=== PATIENT | female | born 1980 | race Caucasian/White ===

== ENCOUNTER 2016-06-17 18:45 | Emergency (ER) ==
[2016-06-17 18:55] VITALS: BP 142/85; TEMP 99.5; BMI 36.2
[2016-06-17 19:13] LABS: BILIRUBIN,URINE Negative (NEGATIVE); KETONES,URINE Negative (NEGATIVE); LEUKOCYTE ESTERASE ,URINE Negative (NEGATIVE); NITRITE,URINE Negative (NEGATIVE); PH,URINE 5.5 (5-9); PROTEIN,URINE Negative (NEGATIVE); URINE, BLOOD 1+ (NEGATIVE)
[2016-06-17 19:21] LABS: ADD URINE MICROSCOPIC YES
[2016-06-17] MEDS ORDERED: TORADOL IM STA (19:21)
[2016-06-17 19:22] LABS: BACTERIA,URINE 2+ (NOT PRESENT)
--- NOTE | 2016-06-17 19:24 | ED.PDOC ---
General ED Provider: Dr. HEIKE ZARAGOZA Chief Complaint: Back Pain Stated Complaint: Been hurting in the lower back, left lower, for 2 days, hurts to move and turn. Time Seen by Physician: 19:21 Mode of Arrival: Wheelchair Information Source: Patient Primary Care Provider: JOEY FREEMAN Nursing and Triage Documentation Reviewed and Agree: Yes Musculoskeletal Complaint Exam - Back Pain Complaint/Exam Mechanism of Injury: Reports: No known trauma Symptoms Are: Still present Timing: Constant Episodes Lasting: Days Initial Severity: Moderate Current Severity: Moderate Location: Reports: Discrete Character: Reports: Aching, Throbbing Aggravating: Reports: Movements, Lifting, Bending Alleviating: Reports: None Associated Signs and Symptoms: Denies: Swelling, Redness, Bruising, Fever, Weakness, Numbness, Tingling, Abdominal pain, Flank pain, Bladder incontinence, Bowel incontinence, Weight loss, Pain with weight bearing Related History: Reports: Similar episode TAD Risk Factors: Reports: None AAA Risk Factors: Reports: None Cauda Equina Risk Factors: Reports: None Epidural Abcess Risk Factors: Reports: None Related Surgical History: Reports: None Focal Tenderness: Yes Paraspinal Muscle Tenderness: Yes Paraspinal Muscle Spasm: Yes Scoliosis: No Lordosis: No Kyphosis: No SLR Test: Right Negative, Left Negative Hip Motion Testing Pain: Right Negative, Left Negative Focal Weakness: Present: None Focal Sensory Loss: Present: None Gait: Present: Normal Differential Diagnoses: Strain, Other (uti) Review of Systems - Review Of Systems Constitutional: Reports: No symptoms Eyes: Reports: No symptoms Ears, Nose, Mouth, Throat: Reports: No symptoms Respiratory: Reports: No symptoms Cardiac: Reports: No symptoms GI: Reports: No symptoms : Reports: Burning, Dysuria Musculoskeletal: Reports: Back pain Skin: Reports: No symptoms Neurological: Reports: No symptoms Endocrine: Reports: No symptoms Hematologic/Lymphatic: Reports: No symptoms All Other Systems: Reviewed and Negative Past Medical History - Past Medical History Previously Healthy: No Endocrine: Reports: None Cardiovascular: Reports: None Respiratory: Reports: None Hematological: Reports: None Gastrointestinal: Reports: None Genitourinary: Reports: Other (PROLAPSE BLADDER, VULVA MELANOMA, CERVICAL CANCER ) Neuro/Psych: Reports: Anxiety, Depression Musculoskeletal: Reports: None Cancer: Reports: Other (VULVA MELANOMA) Last Menstrual Period: hysterectomy Other Pertinent Past Medical History: PROLAPSE BLADDER - Surgical History General Surgical History: Reports: Hysterectomy ( total hysterectomy 2011, bladder sling surgery 09/2014), Cholecystectomy ( GALLBALDDER 1999), Hernia Repair (INGUINAL HERNIA), Other (LYMPH NODE,FISSURE SURGERY,VULVA MELANOMA) - Family History Family History: Reports: None - Social History Smoking Status: Current every day smoker, Heavy tobacco smoker Smoking Cessation Counseling Time: > 10 min Hx Substance Use: No Alcohol Screening: None Physical Exam - Physical Exam Appearance: Well-appearing, Obese Eyes: BELLA, EOMI, Conjunctiva clear ENT: Ears normal, Nose normal, Oropharynx normal Respiratory: Airway patent, Breath sounds clear, Breath sounds equal, Respirations nonlabored Cardiovascular: RRR, Pulses normal, No rub, No murmur GI/: Soft, Nontender, No masses, Bowel sounds normal, No Organomegaly Musculoskeletal: Normal strength (left lower back paraspinal tenderness), ROM intact, No edema, No calf tenderness Skin: Warm, Dry, Normal color Neurological: Sensation intact, Motor intact, Reflexes intact, Cranial nerves intact, Alert, Oriented Psychiatric: Affect appropriate, Mood appropriate Critical Care Note - Critical Care Note Total Time (mins): 0 Course - Course Orders, Labs, Meds: Lab Review 06/17/16 19:05 Urine Color Yellow Urine Clarity Clear Urine pH 5.5 Ur Specific [place] >=1.030 Urine Protein Negative Urine Glucose (UA) Negative Urine Ketones Negative Urine Blood 1+ Urine Nitrite Negative Urine Bilirubin Negative Urine Urobilinogen 0.2 Ur Leukocyte Esterase Negative Urine Microscopic RBC 5-10 Ur Squamous Epith Cells 5-10 Urine Bacteria 2+ Urine Mucus 1+ Orders Category Date Time Status URINALYSIS C & S IF INDICATED Stat LAB 06/17/16 19:05 Completed URINE CULTURE Routine LAB 06/17/16 19:24 Received Ketorolac Tromethamine [Toradol] MEDS 06/17/16 19:21 Discontinued 60 mg IM ONCE STA Medications Discontinued Medications Generic Name Dose Route Start Last Admin Trade Name Freq PRN Reason Stop Dose Admin Ketorolac Tromethamine 60 mg 06/17/16 19:21 06/17/16 19:26 Toradol IM 06/17/16 19:22 60 mg ONCE STA Administration Vital Signs: Temp Pulse Resp BP Pulse Ox 06/17/16 18:46 99.5 F 82 20 142/85 H 97 Departure - Departure Time of Disposition: 19:45 Disposition: HOME SELF-CARE Discharge Problem: Backache Instructions: Low Back Strain (ED) Condition: Stable Pt referred to PMD for follow-up: Yes Additional Instructions: rEST HOT PACK IF HAS PAIN NEEDS F/U [facility] FOR FURTHER EVALUATION Prescriptions: Prednisone 10 mg PO BIDWM #14 tablet Tramadol HCl 50 mg PO BID #14 tablet Allergies/Adverse Reactions: Allergies acetaminophen [From Percocet] Adverse Reaction (Verified 06/17/16 18:54) codeine Adverse Reaction (Verified 03/30/16 20:15) SWELLING, HEART RACING, VOMITING hydrocodone bitartrate [From Lortab] Adverse Reaction (Verified 03/30/16 20:15) RASH, VOMITING oxycodone [From Percocet] Adverse Reaction (Verified 06/17/16 18:54) Penicillins Adverse Reaction (Verified 03/30/16 20:15) RASH, SWELLING Home Medications: Ambulatory Orders Prednisone 10 mg PO BIDWM #14 tablet 06/17/16 Tramadol HCl 50 mg PO BID #14 tablet 06/17/16 Disposition Discussed With: Patient, Family
== END 2016-06-17 20:08 | disposition home or self-care (01) ==
LOC: ED 18:45
DX: M54.5 Low back pain (principal); R30.0 Dysuria; F17.210 Nicotine dependence, cigarettes, uncomplicated
CPT/HCPCS: 81001; 87086; 96372; 99283

== ENCOUNTER 2016-08-26 16:29 | Outpatient (CLI) ==
[2012-10-22 14:20] VITALS: TEMP 97.6
--- NOTE | 2016-08-26 16:51 | DI ---
EXAM: Abdominal series HISTORY: CVA tenderness. COMPARISON: CT abdomen pelvis 01/11/2015 FINDINGS: Lung bases are clear. There are surgical clips in right upper quadrant. There is stool a nd gas scattered throughout the abdomen pelvis. There are no dilated loops of bowel, pneumatosis or portal venous gas. There are calcifications noted in the pelvis. The osseous structures are unrem arkable. IMPRESSION: 1. Nonspecific nonobstructive bowel gas pattern. 2. Changes of previous cholecystectomy with multiple calcified phleboliths in the pelvis
== END 2016-08-26 16:30 | disposition home or self-care (01) ==
LOC: RAD 16:29
PROVIDERS: ATTEND Physician Assistant
DX: M54.9 Dorsalgia, unspecified (principal); R10.31 Right lower quadrant pain

== ENCOUNTER 2016-08-29 20:22 | Emergency (ER) ==
[2016-08-29 20:35] VITALS: BP 127/94; TEMP 100.8; BMI 38.4
--- NOTE | 2016-08-29 20:54 | ED.PDOC ---
General ED Provider: Dr. HEIKE ZARAGOZA Chief Complaint: Back Pain Stated Complaint: Been hurting in rt flank for copuple days, vomited once todat after that she was dizzi and blurry in rt eye Time Seen by Physician: 20:52 Mode of Arrival: Walk-In Information Source: Patient Primary Care Provider: JOEY FREEMAN Nursing and Triage Documentation Reviewed and Agree: Yes GI Complaint Exam - Abdominal Pain Complaint/Exam Onset: Gradual Symptoms Are: Still present Timing: Constant Initial Severity: Moderate Current Severity: Mild Location of Pain: Discrete, RUQ Character: Reports: Sharp, Dull Aggravating: Reports: Movement Alleviating: Reports: None Associated Signs and Symptoms: Reports: Fever, Vomiting Related History: Reports: Similar episode AAA Risk Factors: Reports: None Cardiac Risk Factors: Reports: None Ectopic Risk Factors: Reports: None Ovarian Torsion Risk Factors: Reports: None Surgical Obstruction Risk Factors: Reports: None Related Surgical History: Reports: None Abdominal Findings: Absent: Pulsatile mass, Abdominal distention, Unequal femoral pulses, Rebound tenderness Differential Diagnoses: Diverticulitis, Hepatitis, Pneumonia, Renal Colic Review of Systems - Review Of Systems Constitutional: Reports: Fever, Malaise Eyes: Reports: No symptoms Ears, Nose, Mouth, Throat: Reports: No symptoms Respiratory: Reports: No symptoms Cardiac: Reports: No symptoms GI: Reports: Abdominal pain, Vomiting : Reports: No symptoms Musculoskeletal: Reports: No symptoms Skin: Reports: No symptoms Neurological: Reports: No symptoms Endocrine: Reports: No symptoms Hematologic/Lymphatic: Reports: No symptoms All Other Systems: Reviewed and Negative Past Medical History - Past Medical History Previously Healthy: No Endocrine: Reports: None Cardiovascular: Reports: None Respiratory: Reports: None Hematological: Reports: None Gastrointestinal: Reports: None Genitourinary: Reports: Other (PROLAPSE BLADDER, VULVA MELANOMA, CERVICAL CANCER ) Neuro/Psych: Reports: Anxiety, Depression Musculoskeletal: Reports: None Cancer: Reports: Other (VULVA MELANOMA) Last Menstrual Period: 2011 Other Pertinent Past Medical History: PROLAPSE BLADDER - Surgical History General Surgical History: Reports: Hysterectomy ( total hysterectomy 2011, bladder sling surgery 09/2014), Cholecystectomy ( GALLBALDDER 1999), Hernia Repair (INGUINAL HERNIA), Other (LYMPH NODE,FISSURE SURGERY,VULVA MELANOMA) - Family History Family History: Reports: None - Social History Smoking Status: Current every day smoker, Heavy tobacco smoker Smoking Cessation Counseling Time: > 10 min Hx Substance Use: No Alcohol Screening: None - Immunizations Tetanus Shot up to Date: Yes Physical Exam - Physical Exam Appearance: Well-appearing, Obese Pain Distress: Mild Eyes: BELLA, EOMI ENT: Ears normal, Nose normal, Oropharynx normal Respiratory: Airway patent, Breath sounds clear, Breath sounds equal, Respirations nonlabored Cardiovascular: RRR, Pulses normal, No rub, No murmur GI/: Soft, Tender Musculoskeletal: Normal strength, ROM intact, No edema, No calf tenderness Skin: Warm, Dry, Normal color Neurological: Sensation intact, Motor intact, Reflexes intact, Cranial nerves intact, Alert, Oriented Psychiatric: Affect appropriate, Mood appropriate Interpretation - Radiology Interpretation Radiology Interpretation By: Radiologist Radiology Results: Negative Exam Interpreted: CT Scan Critical Care Note - Critical Care Note Total Time (mins): 0 Course - Course Hematology/Chemistry: 08/29/16 21:05 08/29/16 21:05 Orders, Labs, Meds: Lab Review 08/29/16 08/29/16 08/29/16 21:01 21:05 21:25 WBC 8.79 RBC 4.53 Hgb 13.4 Hct 39.5 MCV 87.2 MCH 29.6 MCHC 33.9 RDW Coeff of [place] 13.3 Plt Count 261 Immature Gran % (Auto) 0.6 Neut % (Auto) 58.7 Lymph % (Auto) 32.4 [place] % (Auto) 5.3 Eos % (Auto) 2.2 Baso % (Auto) 0.8 Immature Gran # (Auto) 0.1 Neut # 5.2 Lymph # 2.9 [place] # 0.5 Eos # 0.2 Baso # 0.1 Sodium 138 Potassium 3.4 L Chloride 102 Carbon Dioxide 26 Anion Gap 13.4 BUN 11 Creatinine 1.04 Estimated GFR (MDRD) 60.00 BUN/Creatinine Ratio 10.57 Glucose 95 Calcium 9.5 Total Bilirubin 0.36 AST 14 L ALT 22 Alkaline Phosphatase 80 Total Protein 7.3 Albumin 3.9 Globulin 3.4 Albumin/Globulin Ratio 1.15 Amylase 67 Lipase 43 Urine Color Yellow Urine Clarity Clear Urine pH 5.5 Ur Specific [place] 1.025 Urine Protein Negative Urine Glucose (UA) Negative Urine Ketones Negative Urine Blood Trace-lysed Urine Nitrite Negative Urine Bilirubin Negative Urine Urobilinogen 1.0 Ur Leukocyte Esterase Negative Urine Microscopic RBC 0-2 Urine Microscopic WBC 0-2 Ur Squamous Epith Cells 0-2 Urine Bacteria Trace Urine Mucus 1+ Influenza A (Rapid) Negative Influenza B (Rapid) Negative Orders Category Date Time Status AMYLASE Stat LAB 08/29/16 21:05 Completed BLOOD CULTURE Stat LAB 08/29/16 21:05 Received CBC W/ AUTO DIFF Stat LAB 08/29/16 21:05 Completed COMPREHENSIVE METABOLIC PANEL Stat LAB 08/29/16 21:05 Completed LIPASE Stat LAB 08/29/16 21:05 Completed RAPID FLU A/B Stat LAB 08/29/16 21:01 Completed URINALYSIS C & S IF INDICATED Stat LAB 08/29/16 21:[address] ABDOMEN/PELVIS WO CONTRAST Stat RADS 08/29/16 20:[address] HEAD W/O CONTRAST Stat RADS 08/29/16 20:50 Completed Vital Signs: Temp Pulse Resp BP Pulse Ox 08/29/16 20:24 100.8 F H 89 20 127/94 H 97 Departure - Departure Time of Disposition: 22:25 Disposition: HOME SELF-CARE Discharge Problem: Viral infection Abdominal pain Qualifiers: Abdominal location: generalized Qualifier Code: (R10.84) Generalized abdominal pain Instructions: Acute Abdominal Pain (ED) Condition: Stable Pt referred to PMD for follow-up: Yes Additional Instructions: Increase hydration Tylenol prn Needs f/u with PMD Allergies/Adverse Reactions: Allergies acetaminophen [From Percocet] Adverse Reaction (Verified 06/17/16 18:54) codeine Adverse Reaction (Verified 03/30/16 20:15) SWELLING, HEART RACING, VOMITING hydrocodone bitartrate [From Lortab] Adverse Reaction (Verified 03/30/16 20:15) RASH, VOMITING oxycodone [From Percocet] Adverse Reaction (Verified 06/17/16 18:54) Penicillins Adverse Reaction (Verified 03/30/16 20:15) RASH, SWELLING tramadol Adverse Reaction (Verified 08/29/16 20:36) Difficulty Swallowing Home Medications: Ambulatory Orders 1 [No Reported Medications] 08/29/16 Disposition Discussed With: Patient, Family
[2016-08-29 21:08] LABS: BASOPHILS # (AUTO) 0.1 K/uL (0-0.2); BASOPHILS % (AUTO) 0.8 % (0.0-3.0); EOSINOPHILS # (AUTO) 0.2 K/ul (0.0-0.7); EOSINOPHILS % (AUTO) 2.2 % (0.0-7.0); HEMATOCRIT 39.5 % (37.0-47.0); HEMOGLOBIN 13.4 g/dl (12.0-16.0); IMMATURE GRANULOCYTE % (AUTO) 0.6 % (0.0-5.0); LYMPHOCYTES # (AUTO) 2.9 K/uL (0.60-3.4); LYMPHOCYTES % (AUTO) 32.4 (10.0-50.0); MEAN CORPUSCULAR HEMOGLOBIN 29.6 pg (27.0-31.0); MEAN CORPUSCULAR HGB CONC 33.9 (31.8-35.4); MEAN CORPUSCULAR VOLUME 87.2 fl (81.0-99.0); MONOCYTES # (AUTO) 0.5 K/uL (0.4-2.0); MONOCYTES % (AUTO) 5.3 (0-10); NEUTROPHILS # (AUTO) 5.2 K/ul (2.0-6.9); NEUTROPHILS % (AUTO) 58.7; PLATELET COUNT 261 10^3/uL (140-440); RED BLOOD COUNT 4.53 10^6/ul (4.20-5.40); WHITE BLOOD COUNT 8.79 K/ul (4.6-10.2)
[2016-08-29 21:20] LABS: FLU INTERNAL QC INTERNAL QC VALID; RAPID FLU A NEGATIVE (NEGATIVE); RAPID FLU B NEGATIVE (NEGATIVE)
[2016-08-29 21:27] LABS: ALBUMIN 3.9 g/dL (3.4-5.0); ALBUMIN/GLOBULIN RATIO 1.15; ANION GAP 13.4; BILIRUBIN,TOTAL 0.36 mg/dL (0.00-1.20); BUN/CREATININE RATIO 10.57; CALCIUM 9.5 mg/dL (8.2-10.2); CREATININE 1.04 mg/dL (0.60-1.30); POTASSIUM 3.4 mmol/L (3.5-5.10); TOTAL PROTEIN 7.3 g/dL (6.4-8.2)
[2016-08-29 21:37] LABS: BILIRUBIN,URINE Negative (NEGATIVE); KETONES,URINE Negative (NEGATIVE); LEUKOCYTE ESTERASE ,URINE Negative (NEGATIVE); NITRITE,URINE Negative (NEGATIVE); PH,URINE 5.5 (5-9); PROTEIN,URINE Negative (NEGATIVE); URINE, BLOOD Trace-lysed (NEGATIVE)
[2016-08-29 21:41] LABS: ADD URINE MICROSCOPIC YES
[2016-08-29 21:42] LABS: BACTERIA,URINE TRACE (NOT PRESENT)
--- NOTE | 2016-08-29 21:49 | CT ---
Exam: CT of the abdomen pelvis without contrast History: Right flank pain Technique: [address] of the abdomen and pelvis without intravascular contrast FINDINGS: The lung bases are clear. No significant liver abnormality. The adrenals, pancreas and sp kaushal are unremarkable. The stomach and hiatus are unremarkable.Prior cholecystectomy. Kidneys and pr oximal collecting system are unremarkable. The appendix is normal. Bowel loops demonstrate normal ca liber. No inflamatory change seen in the mesentery or retroperitoneum. Trace atherosclerotic calcifi cation of the aorta without aneurysm. Prior hysterectomy. Normal pelvic bowel loops. No inflammation of the pelvic fat. Normal urinary bladder. No acute findings of the skeleton. Impression: 1. No inflammatory process, bowel or urinary obstruction is seen. No acute findings of the abdomen or pelvis.
--- NOTE | 2016-08-29 21:50 | CT ---
EXAM: CT brain without contrast HISTORY: Dizziness TECHNIQUE: CT of the brain without intravenous contrast FINDINGS: There is no acute hemorrhage midline shift or mass effect. No hydrocephalus or abnormal extra-axial fluid collection. No significant parenchymal attenuation abnormality. The bony cranium appears normal. The visualized paranasal sinuses are clear. Soft tissues without significant abnorm ality. IMPRESSION: 1. CT of the brain within normal limits.
[2016-08-29] MEDS ORDERED: TORADOL IM STA (22:24)
== END 2016-08-29 22:25 | disposition home or self-care (01) ==
LOC: ED 20:22
DX: B34.9 Viral infection, unspecified (principal); R10.84 Generalized abdominal pain; F17.210 Nicotine dependence, cigarettes, uncomplicated
CPT/HCPCS: 36415; 80053; 81001; 82150; 83690; 85025; 87040; 87804; 99283

== ENCOUNTER 2016-11-05 09:21 | Outpatient (CLI) ==
[2012-10-22 14:20] VITALS: TEMP 97.6
--- NOTE | 2016-11-05 09:49 | DI ---
EXAM: Radiographs, right foot HISTORY: Bilateral foot pain. COMPARISON: 03/25/2012. TECHNIQUE: Three views. FINDINGS: Bone mineralization is normal. There is no fracture or dislocation. The joint spaces ar e maintained. No focal soft tissue abnormality is seen. IMPRESSION: No abnormality of the right foot.
--- NOTE | 2016-11-05 09:49 | DI ---
EXAM: Radiographs, left foot HISTORY: Bilateral foot pain. COMPARISON: 07/29/2015. TECHNIQUE: Three views. FINDINGS: Bone mineralization is normal. There is no fracture or dislocation. The joint spaces ar e maintained. No focal soft tissue abnormality is seen. Since the prior study, there has been no si gnificant interval change. IMPRESSION: No abnormality of the left foot.
== END 2016-11-05 09:22 | disposition home or self-care (01) ==
LOC: RAD 09:21
PROVIDERS: ATTEND Physician Assistant
DX: M79.671 Pain in right foot (principal)

== ENCOUNTER 2017-03-31 10:27 | Outpatient (CLI) ==
[2012-10-22 14:20] VITALS: TEMP 97.6
[2017-03-31 11:08] LABS: ALBUMIN 3.8 g/dL (3.4-5.0); ALBUMIN/GLOBULIN RATIO 1.12; ANION GAP 11.2; BILIRUBIN,TOTAL 0.47 mg/dL (0.00-1.20); BUN/CREATININE RATIO 16.88; CALCIUM 9.5 mg/dL (8.2-10.2); CHOL/HDL RATIO 5.1 (4.5-5.5); CREATININE 0.77 mg/dL (0.60-1.30); POTASSIUM 4.2 mmol/L (3.5-5.10); TOTAL PROTEIN 7.2 g/dL (6.4-8.2)
== END 2017-03-31 10:28 | disposition home or self-care (01) ==
LOC: LAB 10:27
PROVIDERS: ATTEND Physician Assistant
DX: B35.1 Tinea unguium (principal); R00.2 Palpitations
CPT/HCPCS: 36415; 80053; 80061

== ENCOUNTER 2017-04-26 12:18 | Emergency (ER) ==
[2017-04-26 12:24] VITALS: BP 119/80; TEMP 97.8; BMI 36.0
[2017-04-26] MEDS ORDERED: MORPHINE 2 MG/ML SYRINGE IM STA (13:29)
[2017-04-26] MEDS ORDERED: TORADOL IM STA (13:29)
[2017-04-26] MEDS ORDERED: ZOFRAN 4 MG/2 ML IM STA (13:30)
--- NOTE | 2017-04-26 14:26 | CT ---
EXAM: CT abdomen pelvis without contrast HISTORY: Pain, back pain three - 4 days COMPARISON: 08/29/2016 TECHNIQUE: CT abdomen pelvis performed without intravenous contrast. Coronal and sagittal reformatt ed images obtained. FINDINGS: Lung bases clear. No free air. Degenerative change in the spine, greatest at L5-S1. Hea rt normal in size. Evaluation organ parenchyma limited without contrast. Liver appears normal. The patient status post cholecystectomy. Pancreas unremarkable. Spleen unremarkable. Adrenals unremar kable. Aorta normal in caliber. Minimal atherosclerosis. There is a small simple fluid fluid atten uation left renal cyst, approximating 1 cm. No hydronephrosis or nephrolithiasis. No calculi visual ized in normal course of the ureters. Bladder unremarkable. Patient status post hysterectomy. Smal l fat-containing umbilical hernia. No lymphadenopathy or ascites. Stomach appears normal. No dilat ed loops small bowel. Appendix appears normal. Colon unremarkable. No inflammatory stranding ident ified in the abdomen or pelvis. IMPRESSION: 1. No acute abnormality identified in the abdomen pelvis. 2. No hydronephrosis or nephrolithiasis. 3. Degenerative change in the spine, greatest at L5-S1.
--- NOTE | 2017-04-26 15:35 | ED.PDOC ---
General ED Provider: Dr. ELTON MARTINEZ Chief Complaint: Back Pain Stated Complaint: back pain, flank pain Time Seen by Physician: 12:20 Mode of Arrival: Walk-In Information Source: Patient Exam Limitations: No limitations Primary Care Provider: JOEY FREEMAN Nursing and Triage Documentation Reviewed and Agree: Yes Reviewed sepsis parameters & appropriate labs ordered?: Yes (notrauma seen with staff at all times ) System Inflammatory Response Syndrome: Not Applicable Sepsis Protocol: For patient's 13 years and over: Temp is 96.8 and below OR 101 and greater Pulse >90 BPM Resp >20/minute Acutely Altered Mental Status Are patient's symptoms suggestive of a new infection, such as: -Pneumonia -Skin, Soft Tissue -Endocarditis -UTI -Bone, Joint Infection -Implantable Device -Acute Abdominal Infection -Wound Infection -Meningitis -Blood Stream Catheter Infection -Unknown Musculoskeletal Complaint Exam - Back Pain Complaint/Exam Mechanism of Injury: Reports: No known trauma Onset/Duration: 1 day Symptoms Are: Still present Timing: Constant Episodes Lasting: Hours Initial Severity: Mild Current Severity: Mild Location: Reports: Discrete Character: Reports: Aching Aggravating: Reports: Movements, Lifting, Bending, Walking Alleviating: Reports: Rest, Position Associated Signs and Symptoms: Denies: Swelling, Redness, Bruising, Fever, Weakness, Numbness, Tingling, Abdominal pain, Flank pain, Bladder incontinence, Bowel incontinence, Weight loss, Pain with weight bearing Related History: Reports: Similar episode TAD Risk Factors: Reports: None AAA Risk Factors: Reports: None Cauda Equina Risk Factors: Reports: None Epidural Abcess Risk Factors: Reports: None Related Surgical History: Reports: None Focal Tenderness: No Paraspinal Muscle Tenderness: No Paraspinal Muscle Spasm: No Scoliosis: No Lordosis: No Kyphosis: No SLR Test: Right Negative, Left Negative Hip Motion Testing Pain: Right Negative, Left Negative Focal Weakness: Present: None Focal Sensory Loss: Present: None Gait: Present: Normal Differential Diagnoses: Renal Colic, Strain, Sprain Review of Systems - Review Of Systems Constitutional: Reports: No symptoms Eyes: Reports: No symptoms Ears, Nose, Mouth, Throat: Reports: No symptoms Respiratory: Reports: No symptoms Cardiac: Reports: No symptoms GI: Reports: No symptoms : Reports: No symptoms Musculoskeletal: Reports: Back pain Skin: Reports: No symptoms Neurological: Reports: No symptoms Endocrine: Reports: No symptoms Hematologic/Lymphatic: Reports: No symptoms All Other Systems: Reviewed and Negative Past Medical History - Past Medical History Previously Healthy: No Endocrine: Reports: None Cardiovascular: Reports: None Respiratory: Reports: None Hematological: Reports: None Gastrointestinal: Reports: None Genitourinary: Reports: Other (PROLAPSE BLADDER, VULVA MELANOMA, CERVICAL CANCER ) Neuro/Psych: Reports: Anxiety, Depression Musculoskeletal: Reports: None Cancer: Reports: Other (VULVA MELANOMA) Last Menstrual Period: na Other Pertinent Past Medical History: PROLAPSE BLADDER - Surgical History General Surgical History: Reports: Hysterectomy ( total hysterectomy 2011, bladder sling surgery 09/2014), Cholecystectomy ( GALLBALDDER 1999), Hernia Repair (INGUINAL HERNIA), Other (LYMPH NODE,FISSURE SURGERY,VULVA MELANOMA) - Family History Family History: Reports: None - Social History Smoking Status: Former smoker Hx Substance Use: No Alcohol Screening: None - Immunizations Tetanus Shot up to Date: Yes Physical Exam - Physical Exam Appearance: Well-appearing, No pain distress, Well-nourished Eyes: BELLA, EOMI, Conjunctiva clear ENT: Ears normal, Nose normal, Oropharynx normal Respiratory: Airway patent, Breath sounds clear, Breath sounds equal, Respirations nonlabored Cardiovascular: RRR, Pulses normal, No rub, No murmur GI/: Soft, Nontender, No masses, Bowel sounds normal, No Organomegaly Musculoskeletal: Normal strength, ROM intact, No edema, No calf tenderness Skin: Warm, Dry, Normal color Neurological: Sensation intact, Motor intact, Reflexes intact, Cranial nerves intact, Alert, Oriented Psychiatric: Affect appropriate, Mood appropriate Interpretation - Radiology Interpretation Radiology Interpretation By: Radiologist Radiology Results: No acute changes Critical Care Note - Critical Care Note Total Time (mins): 0 Course - Course Hematology/Chemistry: 04/26/17 13:45 04/26/17 13:45 Orders, Labs, Meds: Lab Review 04/26/17 04/26/17 04/26/17 13:20 13:45 13:45 WBC 6.48 RBC 4.47 Hgb 13.1 Hct 39.7 MCV 88.8 MCH 29.3 MCHC 33.0 RDW Coeff of [place] 13.2 Plt Count 265 Immature Gran % (Auto) 0.2 Neut % (Auto) 61.4 Lymph % (Auto) 30.6 [place] % (Auto) 5.2 Eos % (Auto) 2.0 Baso % (Auto) 0.6 Immature Gran # (Auto) 0.0 Neut # 4.0 Lymph # 2.0 [place] # 0.3 L Eos # 0.1 Baso # 0.0 Sodium 140 Potassium 4.1 Chloride 106 Carbon Dioxide 30 Anion Gap 8.1 BUN 9 Creatinine 0.77 Estimated GFR (MDRD) 84.00 BUN/Creatinine Ratio 11.68 Glucose 94 Calcium 9.5 Total Bilirubin 0.3 AST 14 L ALT 21 Alkaline Phosphatase 93 Total Protein 7.4 Albumin 3.8 Globulin 3.6 Albumin/Globulin Ratio 1.06 Urine Color Yellow Urine Clarity Clear Urine pH 6.5 Ur Specific [place] 1.025 Urine Protein Negative Urine Glucose (UA) Negative Urine Ketones Negative Urine Blood Negative Urine Nitrite Negative Urine Bilirubin Negative Urine Urobilinogen 1.0 Ur Leukocyte Esterase Negative Orders Category Date Time Status CBC W/ AUTO DIFF Stat LAB 04/26/17 13:45 Completed COMPREHENSIVE METABOLIC PANEL Stat LAB 04/26/17 13:45 Completed URINALYSIS C & S IF INDICATED Stat LAB 04/26/17 13:20 Completed Ketorolac Tromethamine [Toradol] MEDS 04/26/17 13:29 Discontinued 60 mg IM ONCE STA Morphine Sulfate [Morphine 2 mg/ml Syringe] MEDS 04/26/17 13:29 Discontinued 4 mg IM ONCE STA Ondansetron HCl/Pf [Zofran 4 mg/2 ml] MEDS 04/26/17 13:30 Discontinued 4 mg IM ONCE STA CT ABD/PEL WO RENAL STONE PROT Stat RADS 04/26/17 13:26 Completed Medications Discontinued Medications Generic Name Dose Route Start Last Admin Trade Name Colt PRN Reason Stop Dose Admin Ketorolac Tromethamine 60 mg 04/26/17 13:29 04/26/17 13:40 Toradol IM 04/26/17 13:30 Not Given ONCE STA Morphine Sulfate 4 mg 04/26/17 13:29 04/26/17 13:38 Morphine 2 Mg/Ml Syringe IM 04/26/17 13:30 Not Given ONCE STA Ondansetron HCl 4 mg 04/26/17 13:30 04/26/17 13:40 Zofran 4 Mg/2 Ml IM 04/26/17 13:31 Not Given ONCE STA Vital Signs: Temp Pulse Resp BP Pulse Ox 04/26/17 12:19 97.8 F 58 L 16 119/80 98 Departure - Departure Time of Disposition: 15:35 Disposition: HOME SELF-CARE Discharge Problem: Backache Instructions: Flank Pain (ED), Low Back Strain (GEN), Low Back Strain (ED), Acute Low Back Pain (ED) Condition: Good Pt referred to PMD for follow-up: Yes Additional Instructions: Please call your Family Physician as soon as possible to schedule a follow-up appointment. Allergies/Adverse Reactions: Allergies acetaminophen [From Percocet] Adverse Reaction (Verified 04/26/17 12:26) codeine Adverse Reaction (Verified 04/26/17 12:26) SWELLING, HEART RACING, VOMITING hydrocodone bitartrate [From Lortab] Adverse Reaction (Verified 04/26/17 12:26) RASH, VOMITING oxycodone [From Percocet] Adverse Reaction (Verified 04/26/17 12:26) Penicillins Adverse Reaction (Verified 04/26/17 12:26) RASH, SWELLING tramadol Adverse Reaction (Verified 04/26/17 12:26) Difficulty Swallowing Home Medications: Ambulatory Orders 1 [No Reported Medications] 08/29/16
== END 2017-04-26 16:24 | disposition home or self-care (01) ==
LOC: ED 12:18
DX: M54.9 Dorsalgia, unspecified (principal); Z85.41 Personal history of malignant neoplasm of cervix uteri; Z87.448 Personal history of other diseases of urinary system; Z85.820 Personal history of malignant melanoma of skin; Z85.59 Personal history of malignant neoplasm of other urinary tract organ
CPT/HCPCS: 36415; 74176; 80053; 81001; 85025; 99283

== ENCOUNTER 2017-08-09 15:15 | Outpatient (CLI) ==
[2012-10-22 14:20] VITALS: TEMP 97.6
== END 2017-08-09 15:16 | disposition home or self-care (01) ==
LOC: LAB 15:15
PROVIDERS: ATTEND Physician Assistant
DX: R00.2 Palpitations (principal); R07.89 Other chest pain
CPT/HCPCS: 36415; 80048; 84443; 84484; 85025; 93005; 93010

== ENCOUNTER 2017-11-17 23:36 | Emergency (ER) ==
[2017-11-17 23:47] VITALS: BP 120/78; TEMP 98.2; BMI 36.1
[2017-11-18] MEDS ORDERED: LEVAQUIN 500 MG in PREMIX 100 ML D5W 1 BAG IV STA (00:11)
[2017-11-18] MEDS ORDERED: DUONEB NEB STA (00:11)
[2017-11-18] MEDS ORDERED: SOLU-MEDROL 40 MG IVP STA (00:11)
[2017-11-18] MEDS ORDERED: LEVAQUIN 100 ML IV ONE (00:17)
--- NOTE | 2017-11-18 01:52 | CT ---
Exam: CT angiography of the chest History: Cough and dyspnea Technique: [address] of the chest utilizing CT angiography protocol. Multiplanar and max imum intensity projection reformations were performed. FINDINGS: Technically adequate for evaluation of pulmonary arteries and aorta. There are no pulmona ry artery filling defects. The lung windows show no significant pulmonary parenchymal abnormalities. Heart, great vessels and pericardium appear normal. No pathologic lymph node enlargement or abunda nce of mediastinum. No acute findings of the chest wall soft tissues or bony thorax. Impression: 1. No evidence of pulmonary artery thrombus. No acute findings of the chest.
[2017-11-18] MEDS ORDERED: K-DUR PO STA (02:01)
--- NOTE | 2017-11-18 02:05 | ED.PDOC ---
General ED Provider: Dr. ROZ QUIROS-ER Chief Complaint: Shortness of Air Stated Complaint: im coughing up green stuff Time Seen by Physician: 23:40 Mode of Arrival: Walk-In Information Source: Patient Exam Limitations: No limitations Primary Care Provider: JOEY FREEMAN Nursing and Triage Documentation Reviewed and Agree: Yes Does patient meet sepsis criteria?: No System Inflammatory Response Syndrome: Not Applicable Sepsis Protocol: For patient's 13 years and over: Temp is 96.8 and below OR 101 and greater Pulse >90 BPM Resp >20/minute Acutely Altered Mental Status Are patient's symptoms suggestive of a new infection, such as: -Pneumonia -Skin, Soft Tissue -Endocarditis -UTI -Bone, Joint Infection -Implantable Device -Acute Abdominal Infection -Wound Infection -Meningitis -Blood Stream Catheter Infection -Unknown Respiratory Complaint Exam - Respiratory Complaint/Exam Onset/Duration: 3 days Symptoms Are: Still present Timing: Intermittent Initial Severity: Mild Current Severity: Moderate Location: Chest Character: Reports: Productive cough Aggravating: Reports: URI Alleviating: Reports: None Associated Signs and Symptoms: Reports: Wheezing. Denies: Rapid breathing, Dyspnea, Fever, Chills, Chest pain, Pleuritic chest pain, Hemoptysis, Dizziness , Calf pain, Calf swelling, Edema, URI Home Oxygen Use: No Recent Stress Test: No Recent Echo/LV Function: No Current Antibiotic Use: No Current Asthma Medication Use: No Dysphagia Present: No Stridor Present: No JVD Present: No Accessory Muscle Use: No Retractions: Not Present Diminished Breath Sounds: No Sinus Tenderness: None Grunting Respirations: No Kussmaul Respirations: No Differential Diagnoses: Asthma, Pneumonia, Bronchitis Non-Traumatic Chest Pain Syncope: EKG Performed Review of Systems - Review Of Systems Constitutional: Reports: No symptoms Eyes: Reports: No symptoms Ears, Nose, Mouth, Throat: Reports: No symptoms Respiratory: Reports: Cough, Short of air, Wheezing Cardiac: Reports: No symptoms GI: Reports: No symptoms : Reports: No symptoms Musculoskeletal: Reports: No symptoms Skin: Reports: No symptoms Neurological: Reports: No symptoms Endocrine: Reports: No symptoms Hematologic/Lymphatic: Reports: No symptoms All Other Systems: Reviewed and Negative Past Medical History - Past Medical History Previously Healthy: No Endocrine: Reports: None Cardiovascular: Reports: None Respiratory: Reports: None Hematological: Reports: None Gastrointestinal: Reports: None Genitourinary: Reports: Other (PROLAPSE BLADDER, VULVA MELANOMA, CERVICAL CANCER ) Neuro/Psych: Reports: Anxiety, Depression Musculoskeletal: Reports: None Cancer: Reports: Other (VULVA MELANOMA) Last Menstrual Period: PT HAS HAD A HYSTERECTOMY Other Pertinent Past Medical History: PROLAPSE BLADDER - Surgical History General Surgical History: Reports: Hysterectomy ( total hysterectomy 2011, bladder sling surgery 09/2014), Cholecystectomy ( GALLBALDDER 1999), Hernia Repair (INGUINAL HERNIA), Other (LYMPH NODE,FISSURE SURGERY,VULVA MELANOMA) - Family History Family History: Reports: None - Social History Smoking Status: Former smoker Hx Substance Use: No Alcohol Screening: None - Immunizations Tetanus Shot up to Date: Yes Physical Exam - Physical Exam Appearance: Well-appearing, No pain distress, Well-nourished Eyes: BELLA, EOMI, Conjunctiva clear ENT: Ears normal Neck: Supple Respiratory: Airway patent, Wheezes Cardiovascular: RRR GI/: Soft Musculoskeletal: Normal strength Skin: Warm Neurological: Sensation intact Psychiatric: Affect appropriate, Mood appropriate Interpretation - Radiology Interpretation Radiology Interpretation By: Radiologist Radiology Results: Negative Exam Interpreted: CT Scan - EKG Interpretation Time of EKG #1: 02:05 Rate: Normal Rhythm: Sinus Ectopy: None [place]: NL ST Segment: Normal Interpretation: sinus rythym Critical Care Note - Critical Care Note Total Time (mins): 0 Course - Course Hematology/Chemistry: 11/18/17 00:15 11/18/17 00:15 Orders, Labs, Meds: Lab Review 11/18/17 11/18/17 11/18/17 00:02 00:15 00:15 WBC 5.65 RBC 4.29 Hgb 12.5 Hct 37.2 MCV 86.7 MCH 29.1 MCHC 33.6 RDW Coeff of Serene 13.1 Plt Count 227 Immature Gran % (Auto) 0.2 Neut % (Auto) 47.6 Lymph % (Auto) 42.8 [place] % (Auto) 6.4 Eos % (Auto) 2.3 Baso % (Auto) 0.7 Immature Gran # (Auto) 0.0 Neut # (Auto) 2.7 Lymph # (Auto) 2.4 Hubbard # (Auto) 0.4 Eos # (Auto) 0.1 Baso # (Auto) 0.0 Puncture Site Lb O2 Saturation 96.0 ABG pH 7.430 ABG pCO2 41.0 ABG pO2 81.0 L ABG HCO3 27.3 H ABG Total CO2 28 ABG Base Excess 3 H Sotero Test + FiO2 % 21.0 Sodium 141 Potassium 3.1 L Chloride 107 Carbon Dioxide 25 Anion Gap 12.1 BUN 11 Creatinine 0.80 Estimated GFR (MDRD) 80.00 BUN/Creatinine Ratio 13.75 Glucose 121 H Calcium 9.5 Total Bilirubin 0.4 AST 14 L ALT 15 Alkaline Phosphatase 82 B-Natriuretic Peptide Total Protein 7.1 Albumin 3.6 Globulin 3.5 Albumin/Globulin Ratio 1.03 11/18/17 00:15 WBC RBC Hgb Hct MCV MCH MCHC RDW Coeff of Serene Plt Count Immature Gran % (Auto) Neut % (Auto) Lymph % (Auto) Hubbard % (Auto) Eos % (Auto) Baso % (Auto) Immature Gran # (Auto) Neut # (Auto) Lymph # (Auto) Hubbard # (Auto) Eos # (Auto) Baso # (Auto) Puncture Site O2 Saturation ABG pH ABG pCO2 ABG pO2 ABG HCO3 ABG Total CO2 ABG Base Excess Sotero Test FiO2 % Sodium Potassium Chloride Carbon Dioxide Anion Gap BUN Creatinine Estimated GFR (MDRD) BUN/Creatinine Ratio Glucose Calcium Total Bilirubin AST ALT Alkaline Phosphatase B-Natriuretic Peptide 11 Total Protein Albumin Globulin Albumin/Globulin Ratio Orders Category Date Time Status ABG DRAW REQUEST Stat CARDIO 11/18/17 00:03 Ordered EKG-(ED ONLY) Stat CARDIO 11/18/17 00:03 Ordered NEBULIZER TREATMENT Stat CARDIO 11/18/17 00:11 Ordered NPO REMINDER: IMAGING ONCE CARE 11/18/17 00:04 Active IV [ED IV/MEDIPORT/POWERPORT] .ONCE EMERGENCY 11/18/17 00:03 Active ABG Stat LAB 11/18/17 00:02 Completed BLOOD CULTURE (ED ONLY) Stat LAB 11/18/17 00:15 Received BNP [B-TYPE NATRIURETIC PEPTIDE] Stat LAB 11/18/17 00:15 Completed CBC W/ AUTO DIFF Stat LAB 11/18/17 00:15 Completed COMPREHENSIVE METABOLIC PANEL Stat LAB 11/18/17 00:15 Completed 0.9 % Sodium Chloride [Saline Flush] MEDS 11/18/17 00:03 Ordered 1 syr IVF PRN PRN Ipratropium/Albuterol Neb [Duoneb] MEDS 11/18/17 00:11 Discontinued 1 vial NEB ONCE STA Levofloxacin/D5w [Levaquin] 100 ml MEDS 11/18/17 00:17 Discontinued IV .STK-MED Levofloxacin/D5w [Levaquin] 500 mg MEDS 11/18/17 00:11 Discontinued Premix 100 ml D5w 1 bag IV ONCE Methylprednisolone Sod Succ/Pf [Solu-Medrol 40 mg] MEDS 11/18/17 00:11 Discontinued 40 mg IVP ONCE STA Potassium Chloride [K-Dur] MEDS 11/18/17 02:01 Stat 40 meq PO ONCE STA CT CHEST PE PROTOCOL Stat RADS 11/18/17 00:04 Completed Medications Generic Name Dose Route Start Last Admin Trade Name Freq PRN Reason Stop Dose Admin Potassium Chloride 40 meq 11/18/17 02:01 K-Dur PO 11/18/17 02:02 ONCE STA Sodium Chloride 1 syr 11/18/17 00:03 11/18/17 00:25 Saline Flush IVF 1 syr PRN PRN Administration To flush IV Discontinued Medications Generic Name Dose Route Start Last Admin Trade Name Freq PRN Reason Stop Dose Admin Albuterol/Ipratropium 1 vial 11/18/17 00:11 11/18/17 00:33 Duoneb NEB 11/18/17 00:12 1 vial ONCE STA Administration Levofloxacin/Dextrose 500 mg/ 100 mls @ 100 mls/hr 11/18/17 00:11 11/18/17 00 :48 Dextrose IV 11/18/17 01:10 Not Given ONCE STA Methylprednisolone Sodium Succinate 40 mg 11/18/17 00:11 11/18/17 00:24 Solu-Medrol 40 Mg IVP 11/18/17 00:12 40 mg ONCE STA Administration Vital Signs: Temp Pulse Resp BP Pulse Ox 11/17/17 23:36 98.2 F 69 32 H 120/78 99 Departure - Departure Time of Disposition: 02:05 Disposition: HOME SELF-CARE Discharge Problem: Bronchitis, Hypokalemia Instructions: Acute Bronchitis (ED) Condition: Good Pt referred to PMD for follow-up: No IPMP verified?: No Additional Instructions: zpack, medrol dose pack--combivent inhaler 2 pffs qid --f/u with pcp and have potassium rechecked Allergies/Adverse Reactions: Allergies codeine Adverse Reaction (Verified 12/26/17 12:26) SWELLING, HEART RACING, VOMITING hydrocodone bitartrate [From Lortab] Adverse Reaction (Verified 04/26/17 12:26) RASH, VOMITING ketorolac [From Toradol] Adverse Reaction (Verified 11/17/17 23:46) Rash oxycodone [From Percocet] Adverse Reaction (Verified 04/26/17 12:26) Penicillins Adverse Reaction (Verified 04/26/17 12:26) RASH, SWELLING tramadol Adverse Reaction (Verified 04/26/17 12:26) Difficulty Swallowing Home Medications: Ambulatory Orders Escitalopram Oxalate [Lexapro] 10 mg PO DAILY 11/18/17 Metoprolol Tartrate 1 tab PO DAILY 11/18/17 Disposition Discussed With: Patient, Family
== END 2017-11-18 02:17 | disposition home or self-care (01) ==
LOC: ED 23:36
DX: J40 Bronchitis, not specified as acute or chronic (principal); E87.6 Hypokalemia; R06.02 Shortness of breath
CPT/HCPCS: 36415; 80053; 82803; 83880; 85025; 87040; 93005; 93010; 94640; 96365; 96375; 99283

== ENCOUNTER 2017-12-02 19:54 | Emergency (ER) ==
[2017-12-02 20:02] VITALS: BP 113/78; TEMP 100.1; BMI 34.3
--- NOTE | 2017-12-02 20:21 | ED.PDOC ---
General ED Provider: Dr. HEIKE ZARAGOZA Chief Complaint: Fever Stated Complaint: Came for the right side belly pain, Patient had surgery on . for Vulvar melanoma surgery. she started with fever since yesterday, coughing has some sore throat. Time Seen by Physician: 20:19 Mode of Arrival: Walk-In Information Source: Patient Primary Care Provider: JOEY FREEMAN Nursing and Triage Documentation Reviewed and Agree: Yes Does patient meet sepsis criteria?: No If yes, has appropriate treatment been initiated?: No System Inflammatory Response Syndrome: Not Applicable Sepsis Protocol: For patient's 13 years and over: Temp is 96.8 and below OR 101 and greater Pulse >90 BPM Resp >20/minute Acutely Altered Mental Status Are patient's symptoms suggestive of a new infection, such as: -Pneumonia -Skin, Soft Tissue -Endocarditis -UTI -Bone, Joint Infection -Implantable Device -Acute Abdominal Infection -Wound Infection -Meningitis -Blood Stream Catheter Infection -Unknown GI Complaint Exam - Abdominal Pain Complaint/Exam Onset: Gradual Symptoms Are: Still present Timing: Constant Initial Severity: Mild Current Severity: Mild Location of Pain: RLQ Radiates To: Reports: Flank Character: Reports: Dull, Aching Aggravating: Reports: Movement Alleviating: Reports: None Associated Signs and Symptoms: Reports: Fever, Cough. Denies: Diaphoresis, Chest pain, Dizziness, Back pain, Constipation, Blood in stool, Dysuria, Urinary frequency, Decreased urine output, Decreased appetite, Vaginal bleeding , Vaginal discharge, Nausea, Vomiting, Diarrhea, Sore throat, Decreased activity AAA Risk Factors: Reports: None Cardiac Risk Factors: Reports: None Ectopic Risk Factors: Reports: None Ovarian Torsion Risk Factors: Reports: None Surgical Obstruction Risk Factors: Reports: None Related Surgical History: Reports: None Abdominal Findings: Absent: Pulsatile mass, Abdominal distention, Unequal femoral pulses Differential Diagnoses: UTI Review of Systems - Review Of Systems Constitutional: Reports: No symptoms Eyes: Reports: No symptoms Ears, Nose, Mouth, Throat: Reports: No symptoms Respiratory: Reports: No symptoms Cardiac: Reports: No symptoms GI: Reports: No symptoms, Abdominal pain : Reports: Burning, Dysuria, Frequency, Flank pain Musculoskeletal: Reports: No symptoms Skin: Reports: No symptoms Neurological: Reports: No symptoms Endocrine: Reports: No symptoms Hematologic/Lymphatic: Reports: No symptoms All Other Systems: Reviewed and Negative Past Medical History - Past Medical History Previously Healthy: No Endocrine: Reports: None Cardiovascular: Reports: None Respiratory: Reports: None Hematological: Reports: None Gastrointestinal: Reports: None Genitourinary: Reports: Other (PROLAPSE BLADDER, VULVA MELANOMA, CERVICAL CANCER ) Neuro/Psych: Reports: Anxiety, Depression Musculoskeletal: Reports: None Cancer: Reports: Other (VULVA MELANOMA) Last Menstrual Period: na Other Pertinent Past Medical History: PROLAPSE BLADDER - Surgical History General Surgical History: Reports: Hysterectomy ( total hysterectomy 2011, bladder sling surgery 09/2014), Cholecystectomy ( GALLBALDDER 1999), Hernia Repair (INGUINAL HERNIA), Other (LYMPH NODE,FISSURE SURGERY,VULVA MELANOMA) - Family History Family History: Reports: None - Social History Smoking Status: Former smoker Hx Substance Use: No Alcohol Screening: None - Immunizations Tetanus Shot up to Date: Yes Physical Exam - Physical Exam Appearance: Ill-appearing, No pain distress, Well-nourished, Obese Eyes: BELLA, EOMI, Conjunctiva clear ENT: Ears normal, Nose normal, Oropharynx normal Respiratory: Airway patent, Breath sounds clear, Breath sounds equal, Respirations nonlabored Cardiovascular: RRR, Pulses normal, No rub, No murmur GI/: Soft, Nontender, No masses, Bowel sounds normal, No Organomegaly Musculoskeletal: Normal strength, ROM intact, No edema, No calf tenderness Skin: Warm, Dry, Normal color Neurological: Sensation intact, Motor intact, Reflexes intact, Cranial nerves intact, Alert, Oriented Psychiatric: Affect appropriate, Mood appropriate Interpretation - Radiology Interpretation Radiology Interpretation By: Radiologist Radiology Results: Negative Exam Interpreted: CT Scan Critical Care Note - Critical Care Note Total Time (mins): 30 Course - Course Hematology/Chemistry: 12/02/17 20:29 12/02/17 20:29 Orders, Labs, Meds: Lab Review 12/02/17 12/02/17 12/02/17 20:10 20:29 20:29 WBC 9.03 RBC 4.38 Hgb 12.7 Hct 37.7 MCV 86.1 MCH 29.0 MCHC 33.7 RDW Coeff of Serene 12.8 Plt Count 281 Immature Gran % (Auto) 0.3 Neut % (Auto) 64.7 Lymph % (Auto) 26.9 [place] % (Auto) 4.7 Eos % (Auto) 3.0 Baso % (Auto) 0.4 Immature Gran # (Auto) 0.0 Neut # (Auto) 5.8 Lymph # (Auto) 2.4 Emmet # (Auto) 0.4 Eos # (Auto) 0.3 Baso # (Auto) 0.0 Sodium 140 Potassium 3.4 L Chloride 102 Carbon Dioxide 27 Anion Gap 14.4 BUN 7 Creatinine 0.89 Estimated GFR (MDRD) 71.00 BUN/Creatinine Ratio 7.86 Glucose 118 H Lactic Acid Calcium 9.4 Total Bilirubin 0.5 AST 18 ALT 22 Alkaline Phosphatase 80 Total Protein 7.0 Albumin 3.5 Globulin 3.5 Albumin/Globulin Ratio 1.00 Procalcitonin Urine Color Yellow Urine Clarity Clear Urine pH 7.0 Ur Specific [place] 1.015 Urine Protein Negative Urine Glucose (UA) Negative Urine Ketones Negative Urine Blood 2+ Urine Nitrite Negative Urine Bilirubin Negative Urine Urobilinogen 0.2 Ur Leukocyte Esterase Trace Urine Microscopic RBC 2-5 Urine Microscopic WBC 5-10 Ur Squamous Epith Cells 10-20 Urine Bacteria 1+ Urine Mucus Trace 12/02/17 12/02/17 20:29 20:29 WBC RBC Hgb Hct MCV MCH MCHC RDW Coeff of Serene Plt Count Immature Gran % (Auto) Neut % (Auto) Lymph % (Auto) Emm[place] % (Auto) Eos % (Auto) Baso % (Auto) Immature Gran # (Auto) Neut # (Auto) Lymph # (Auto) Emmet # (Auto) Eos # (Auto) Baso # (Auto) Sodium Potassium Chloride Carbon Dioxide Anion Gap BUN Creatinine Estimated GFR (MDRD) BUN/Creatinine Ratio Glucose Lactic Acid 9.0 Calcium Total Bilirubin AST ALT Alkaline Phosphatase Total Protein Albumin Globulin Albumin/Globulin Ratio Procalcitonin < 0.05 Urine Color Urine Clarity Urine pH Ur Specific [place] Urine Protein Urine Glucose (UA) Urine Ketones Urine Blood Urine Nitrite Urine Bilirubin Urine Urobilinogen Ur Leukocyte Esterase Urine Microscopic RBC Urine Microscopic WBC Ur Squamous Epith Cells Urine Bacteria Urine Mucus Orders Category Date Time Status CBC W/ AUTO DIFF Stat LAB 12/02/17 20:29 Completed COMPREHENSIVE METABOLIC PANEL Stat LAB 12/02/17 20:29 Completed LACTIC ACID Stat LAB 12/02/17 20:29 Completed PROCALCITONIN Stat LAB 12/02/17 20:29 Completed UA [URINALYSIS C & S IF INDICATED] Stat LAB 12/02/17 20:10 Completed URINE CULTURE Stat LAB 12/02/17 20:[address] ABDOMEN/PELVIS WO CONTRAST Stat RADS 12/02/17 20:54 Completed Vital Signs: Temp Pulse Resp BP Pulse Ox 12/02/17 19:55 100.1 F H 109 H 22 113/78 97 Departure - Departure Time of Disposition: 21:46 Disposition: HOME SELF-CARE Discharge Problem: URTI (acute upper respiratory infection) Instructions: Upper Respiratory Infection (ED) Condition: Stable Pt referred to PMD for follow-up: Yes IPMP verified?: No Additional Instructions: INCREASE HYDRATION TYLENOL PRN IF NOT BETTER COME BACK Prescriptions: Sulfamethoxazole/Trimethoprim [Bactrim Ds 800/160 mg] 1 tab PO Q12HR #20 tablet Allergies/Adverse Reactions: Allergies codeine Adverse Reaction (Verified 12/02/17 20:11) SWELLING, HEART RACING, VOMITING hydrocodone bitartrate [From Lortab] Adverse Reaction (Verified 12/02/17 20:11) RASH, VOMITING ketorolac [From Toradol] Adverse Reaction (Verified 12/02/17 20:11) Rash oxycodone [From Percocet] Adverse Reaction (Verified 12/02/17 20:11) Penicillins Adverse Reaction (Verified 12/02/17 20:11) RASH, SWELLING tramadol Adverse Reaction (Verified 12/02/17 20:11) Difficulty Swallowing Home Medications: Ambulatory Orders Metoprolol Tartrate 1 tab PO DAILY 11/18/17 Docusate Sodium [Colace] 100 mg PO BID 12/02/17 Ibuprofen 800 mg PO DIRECTED PRN 12/02/17 Sulfamethoxazole/Trimethoprim [Bactrim Ds 800/160 mg] 1 tab PO Q12HR #20 tablet 12/02/17 Disposition Discussed With: Patient, Family
--- NOTE | 2017-12-02 21:30 | CT ---
EXAM: CT scan abdomen pelvis without contrast HISTORY: Abdominal pain COMPARISON: CT scan abdomen pelvis 08/29/2016 FINDINGS: The contiguous axial images obtained from lung bases to the symphysis pubis without contra st utilizing 3-mm collimation. Sagittal and coronal reconstructions were imaged and reviewed. The vi sualized lung bases are clear. There has been prior cholecystectomy. The liver, pancreas, spleen an d adrenal glands have normal unenhanced CT appearance. The right kidneys morphologically normal. Si mple cyst lower pole left kidney The abdominal aorta is normal in course and caliber without aneurys m formation. There is no CT evidence of appendicitis. There is no free fluid or inflammatory change s. There is a tiny umbilical hernia containing only fat. IMPRESSION: No acute intra-abdominal findings
[2017-12-02] MEDS ORDERED: BACTRIM DS 800/160 MG PO STA (21:48)
== END 2017-12-02 22:00 | disposition home or self-care (01) ==
LOC: ED 19:54
DX: J06.9 Acute upper respiratory infection, unspecified (principal); R10.31 Right lower quadrant pain; R30.0 Dysuria; R35.0 Frequency of micturition; C51.9 Malignant neoplasm of vulva, unspecified; Z98.890 Other specified postprocedural states
CPT/HCPCS: 36415; 80053; 81001; 83605; 84145; 85025; 87086; 99283

== ENCOUNTER 2017-12-13 11:27 | Emergency (ER) ==
[2017-12-13 11:33] VITALS: BP 128/81; TEMP 98.7; BMI 36.7
--- NOTE | 2017-12-13 12:20 | ED.PDOC ---
General ED Provider: Dr. ROZ JASON Chief Complaint: Wound Check Stated Complaint: Vaginal Surgical wound problems. State she had surgery for vulva pre cancerous lesions by Dr Mcpherson at [facility] in [facility] 2 weeks ago. This morning awakened to find bleeding at surgical site--seen in er last week due to infection and felt that sutures were coming out--states woke up this am with blood to perineum and had stitch loose--has swelling to vaginal area--states has lots of pain and discomfort in lt vaginal and thigh region. Stated bleeding has resolved. Time Seen by Physician: 11:50 Mode of Arrival: Walk-In Information Source: Patient Exam Limitations: No limitations Primary Care Provider: JOEY FREEMAN Nursing and Triage Documentation Reviewed and Agree: Yes Does patient meet sepsis criteria?: No System Inflammatory Response Syndrome: Not Applicable Sepsis Protocol: For patient's 13 years and over: Temp is 96.8 and below OR 101 and greater Pulse >90 BPM Resp >20/minute Acutely Altered Mental Status Are patient's symptoms suggestive of a new infection, such as: -Pneumonia -Skin, Soft Tissue -Endocarditis -UTI -Bone, Joint Infection -Implantable Device -Acute Abdominal Infection -Wound Infection -Meningitis -Blood Stream Catheter Infection -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 - Vaginal 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 Complaint/Exam Symptoms Are: Resolved Timing: Intermittent Initial Severity: Moderate Current Severity: None # of Pads Per Hour: 0 Character: Reports: Bright red Aggravating: Reports: None Alleviating: Reports: Rest Associated Signs and Symptoms: Denies: Dizziness, Lightheadedness, Pale, UTI symptoms, Abdominal pain, Cramping, Generalized pain Related Surgical History: Reports: None (Recent excision of vulvar Intraepithelia neoplasia) Vulva Exam: Present: Labial lesions, Labial swelling (Lt vulvar edema and evidence of healing surgical wound 3 X 4 cm /appearance of being dehisced' no erythrema or site of drainage. minimally tender) Review of Systems - Review Of Systems Constitutional: Reports: No symptoms Eyes: Reports: No symptoms Ears, Nose, Mouth, Throat: Reports: No symptoms Respiratory: Reports: No symptoms Cardiac: Reports: No symptoms GI: Reports: No symptoms : Reports: No symptoms Musculoskeletal: Reports: No symptoms Skin: Reports: No symptoms Neurological: Reports: No symptoms Endocrine: Reports: No symptoms Hematologic/Lymphatic: Reports: No symptoms All Other Systems: Reviewed and Negative Past Medical History - Past Medical History Previously Healthy: No Endocrine: Reports: None Cardiovascular: Reports: None Respiratory: Reports: None Hematological: Reports: None Gastrointestinal: Reports: None Genitourinary: Reports: Other (PROLAPSE BLADDER, VULVA pre cancer, CERVICAL CANCER) Neuro/Psych: Reports: Anxiety, Depression Musculoskeletal: Reports: None Cancer: Reports: Other (VULVA MELANOMA) Last Menstrual Period: hysterectomy Other Pertinent Past Medical History: PROLAPSE BLADDER - Surgical History General Surgical History: Reports: Hysterectomy ( total hysterectomy 2011, bladder sling surgery 09/2014), Cholecystectomy ( GALLBALDDER 1999), Hernia Repair (INGUINAL HERNIA), Other (LYMPH NODE,FISSURE SURGERY,VULVA MELANOMA) - Family History Family History: Reports: None - Social History Smoking Status: Former smoker Hx Substance Use: No Alcohol Screening: None Physical Exam - Physical Exam Appearance: Well-appearing, No pain distress, Well-nourished Eyes: BELLA, EOMI, Conjunctiva clear ENT: Ears normal, Nose normal, Oropharynx normal Respiratory: Airway patent, Breath sounds clear, Breath sounds equal, Respirations nonlabored Cardiovascular: RRR, Pulses normal, No rub, No murmur GI/: Soft, Nontender, No masses, Bowel sounds normal, No Organomegaly Musculoskeletal: Normal strength, ROM intact, No edema, No calf tenderness Skin: Warm, Dry, Normal color Neurological: Sensation intact, Motor intact, Reflexes intact, Cranial nerves intact, Alert, Oriented Psychiatric: Affect appropriate, Mood appropriate Physician Notification - Case Discussed Physician Notified: Dr De Luna Time of Notification: 12:07 (advised of findings. states description is similar to last weeks exam/ continue conservative post op management as previously outlined) Critical Care Note - Critical Care Note Total Time (mins): 0 Course - Course Vital Signs: Temp Pulse Resp BP Pulse Ox 12/13/17 11:27 98.7 F 65 20 128/81 98 Departure - Departure Time of Disposition: 12:20 Disposition: HOME SELF-CARE Discharge Problem: Open wound of vulva, Dehiscence of closure of skin, Hx vulvar dysplasia, Wound dehiscence Instructions: Wound Dehiscence (ED), Sitz Bath (DC), Care For Your Absorbable Stitches (ED) Condition: Good Pt referred to PMD for follow-up: 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 ) IPMP verified?: No Additional Instructions: Warm Sitz baths daily (epsom Salts) daily for wound irrigation and cleansing Take meds as directed If develops temperature /fever, chills or abnormal discharge/ Wound drainage- return to ER and contact Dr Mcpherson If symptoms seem to worsen advise or return to ER F/'U Dr Mcpherson as planned Allergies/Adverse Reactions: Allergies codeine Adverse Reaction (Verified 12/13/17 11:35) SWELLING, HEART RACING, VOMITING hydrocodone bitartrate [From Lortab] Adverse Reaction (Verified 12/13/17 11:35) RASH, VOMITING ketorolac [From Toradol] Adverse Reaction (Verified 12/13/17 11:35) Rash oxycodone [From Percocet] Adverse Reaction (Verified 12/13/17 11:35) Penicillins Adverse Reaction (Verified 12/13/17 11:35) RASH, SWELLING tramadol Adverse Reaction (Verified 12/13/17 11:35) Difficulty Swallowing Home Medications: Ambulatory Orders Metoprolol Tartrate 1 tab PO DAILY 11/18/17 Ibuprofen 800 mg PO DIRECTED PRN 12/02/17 Disposition Discussed With: Patient
== END 2017-12-13 12:31 | disposition home or self-care (01) ==
LOC: ED 11:27
DX: T81.31XA Disruption of external operation (surgical) wound, not elsewhere classified, initial encounter (principal); N99.820 Postprocedural hemorrhage of a genitourinary system organ or structure following a genitourinary system procedure
CPT/HCPCS: 99282

== ENCOUNTER 2018-01-13 22:43 | Emergency (ER) ==
[2018-01-13 22:51] VITALS: BP 157/85; TEMP 98; BMI 36.9
--- NOTE | 2018-01-13 23:53 | ED.PDOC ---
General ED Provider: Dr. ROZ QUIROS-ER Chief Complaint: Palpitations Stated Complaint: dr mauro and i decided to wean beta blockers--but i am having more palpitations off them=--i am not having chest pain and i think i need to restart them Time Seen by Physician: 22:50 Mode of Arrival: Walk-In Information Source: Patient Exam Limitations: No limitations Primary Care Provider: SWAPNIL MAURO Nursing and Triage Documentation Reviewed and Agree: Yes Does patient meet sepsis criteria?: No System Inflammatory Response Syndrome: Not Applicable Sepsis Protocol: For patient's 13 years and over: Temp is 96.8 and below OR 101 and greater Pulse >90 BPM Resp >20/minute Acutely Altered Mental Status Are patient's symptoms suggestive of a new infection, such as: -Pneumonia -Skin, Soft Tissue -Endocarditis -UTI -Bone, Joint Infection -Implantable Device -Acute Abdominal Infection -Wound Infection -Meningitis -Blood Stream Catheter Infection -Unknown Cardiovascular Complaint Exam - Palpitations Complaint/Exam Onset/Duration: approx 24hrs Symptoms Are: Still present Timing: Intermittent Initial Severity: Mild Current Severity: Mild Character: Reports: Fast, Irregular, Pounding Aggravating: Reports: None Alleviating: Reports: None Associated Signs and Symptoms: Denies: Lightheadedness, Dizziness, Syncope, Chest pain, Shortness of breath, Diaphoresis, Nausea, Vomiting Related History: Similar episode Thyroid Exam: Normal Quality Indicator For Non-Traumatic Chest Pain/Syncope: EKG Performed Review of Systems - Review Of Systems Constitutional: Reports: No symptoms Eyes: Reports: No symptoms Ears, Nose, Mouth, Throat: Reports: No symptoms Respiratory: Reports: No symptoms Cardiac: Reports: Palpitations GI: Reports: No symptoms : Reports: No symptoms Musculoskeletal: Reports: No symptoms Skin: Reports: No symptoms Neurological: Reports: No symptoms Endocrine: Reports: No symptoms Hematologic/Lymphatic: Reports: No symptoms All Other Systems: Reviewed and Negative Past Medical History - Past Medical History Previously Healthy: No Endocrine: Reports: None Cardiovascular: Reports: None Respiratory: Reports: None Hematological: Reports: None Gastrointestinal: Reports: None Genitourinary: Reports: Other (PROLAPSE BLADDER, VULVA pre cancer, CERVICAL CANCER) Neuro/Psych: Reports: Anxiety, Depression Musculoskeletal: Reports: None Cancer: Reports: Other (VULVA MELANOMA) Last Menstrual Period: hysterectomy 2011 Other Pertinent Past Medical History: PROLAPSE BLADDER - Surgical History General Surgical History: Reports: Hysterectomy ( total hysterectomy 2011, bladder sling surgery 09/2014), Cholecystectomy ( GALLBALDDER 1999), Hernia Repair (INGUINAL HERNIA), Other (LYMPH NODE,FISSURE SURGERY,VULVA MELANOMA) - Family History Family History: Reports: None - Social History Smoking Status: Former smoker Hx Substance Use: No Alcohol Screening: None - Immunizations Tetanus Shot up to Date: Yes Physical Exam - Physical Exam Appearance: Well-appearing, No pain distress, Well-nourished Eyes: BELLA, EOMI, Conjunctiva clear ENT: Ears normal, Nose normal, Oropharynx normal Neck: Supple Respiratory: Airway patent, Breath sounds clear, Breath sounds equal, Respirations nonlabored Cardiovascular: RRR, Pulses normal, No rub, No murmur GI/: Soft, Nontender, No masses, Bowel sounds normal, No Organomegaly Musculoskeletal: Normal strength, ROM intact, No edema, No calf tenderness Skin: Warm, Dry, Normal color Neurological: Sensation intact, Motor intact, Reflexes intact, Cranial nerves intact, Alert, Oriented Psychiatric: Affect appropriate, Mood appropriate Interpretation - EKG Interpretation Time of EKG #1: 23:54 Rate: Normal Rhythm: Sinus Ectopy: None [place]: NL ST Segment: Normal Interpretation: nsr Critical Care Note - Critical Care Note Total Time (mins): 0 Course - Course Hematology/Chemistry: 01/13/18 23:18 01/13/18 23:18 Orders, Labs, Meds: Lab Review 01/13/18 01/13/18 01/13/18 23:10 23:10 23:18 WBC 6.38 RBC 4.35 Hgb 12.7 Hct 38.3 MCV 88.0 MCH 29.2 MCHC 33.2 RDW Coeff of [place] 13.2 Plt Count 246 Immature Gran % (Auto) 0.3 Neut % (Auto) 46.4 Lymph % (Auto) 44.5 [place] % (Auto) 6.3 Eos % (Auto) 1.7 Baso % (Auto) 0.8 Immature Gran # (Auto) 0.0 Neut # (Auto) 3.0 Lymph # (Auto) 2.8 [place] # (Auto) 0.4 Eos # (Auto) 0.1 Baso # (Auto) 0.1 Sodium Potassium Chloride Carbon Dioxide Anion Gap BUN Creatinine Estimated GFR (MDRD) BUN/Creatinine Ratio Glucose Calcium Total Bilirubin AST ALT Alkaline Phosphatase Total Protein Albumin Globulin Albumin/Globulin Ratio TSH Free T4 Urine Color Yellow Urine Clarity Clear Urine pH 5.5 Ur Specific [place] 1.010 Urine Protein Negative Urine Glucose (UA) Negative Urine Ketones Negative Urine Blood Negative Urine Nitrite Negative Urine Bilirubin Negative Urine Urobilinogen 0.2 Ur Leukocyte Esterase Negative Urine Opiates Screen Negative Ur Oxycodone Screen Negative Urine Methadone Screen Negative Ur Propoxyphene Screen Negative Ur Barbiturates Screen Negative U Tricyclic Antidepress Negative Ur Phencyclidine Scrn Negative Ur Amphetamine Screen Negative U Methamphetamines Scrn Negative U Benzodiazepines Scrn Negative Urine Cocaine Screen Negative U Cannabinoids Screen Negative 01/13/18 01/13/18 23:18 23:18 WBC RBC Hgb Hct MCV MCH MCHC RDW Coeff of [place] Plt Count Immature Gran % (Auto) Neut % (Auto) Lymph % (Auto) [place] % (Auto) Eos % (Auto) Baso % (Auto) Immature Gran # (Auto) Neut # (Auto) Lymph # (Auto) [place] # (Auto) Eos # (Auto) Baso # (Auto) Sodium 138.9 Potassium 3.64 Chloride 101.2 Carbon Dioxide 31.6 H Anion Gap 9.74 BUN 10.3 Creatinine 0.91 Estimated GFR (MDRD) 69.00 BUN/Creatinine Ratio 11.31 Glucose 97.6 Calcium 9.35 Total Bilirubin 0.33 AST 27.0 ALT 18.6 Alkaline Phosphatase 76.6 Total Protein 7.58 Albumin 4.18 Globulin 3.40 Albumin/Globulin Ratio 1.22 TSH Pending Free T4 1.20 Urine Color Urine Clarity Urine pH Ur Specific [place] Urine Protein Urine Glucose (UA) Urine Ketones Urine Blood Urine Nitrite Urine Bilirubin Urine Urobilinogen Ur Leukocyte Esterase Urine Opiates Screen Ur Oxycodone Screen Urine Methadone Screen Ur Propoxyphene Screen Ur Barbiturates Screen U Tricyclic Antidepress Ur Phencyclidine Scrn Ur Amphetamine Screen U Methamphetamines Scrn U Benzodiazepines Scrn Urine Cocaine Screen U Cannabinoids Screen Orders Category Date Time Status EKG-(ED ONLY) Stat CARDIO 01/13/18 23:03 Ordered HOLTER MONITOR-(ED ONLY) Stat CARDIO 01/13/18 23:57 Ordered ED MARKETING TECHNOLOGY COORDINATOR APPLIED .ONCE EMERGENCY 01/13/18 23:04 Active CBC W/ AUTO DIFF Stat LAB 01/13/18 23:18 Completed COMPREHENSIVE METABOLIC PANEL Stat LAB 01/13/18 23:18 Results FREE T4 (FREE THYROXINE) Stat LAB 01/13/18 23:18 Completed THYROID STIMULATING HORMONE Stat LAB 01/13/18 23:18 Results URINALYSIS C & S IF INDICATED Stat LAB 01/13/18 23:10 Completed URINE DRUG SCREEN (RAPID FOR ED) [DRUG SCREEN, URINE, LAB 01/13/18 23:10 Completed RAPID] Stat in retrospect---she thinks she feels better on the beta tad---she says she takes 37.5mg of lopressor at night--will start the lopressor back at 25mg--she says dr mauro was considering cardiology referral Vital Signs: Temp Pulse Resp BP Pulse Ox 01/13/18 22:44 98 F 66 20 157/85 H 99 MAJO Risk Score MAJO Risk Score: Risk Score Odds of by 30D 0 0.1 (0.1-0.2) 1 0.3 (0.2-0.3) 2 0.4 (0.3-0.5) 3 0.7 (0.6-0.9) 4 1.2 (1.0-1.5) 5 2.2 (1.9-2.6) 6 3.0 (2.5-3.6) 7 4.8 (3.8-6.1) Departure - Departure Time of Disposition: 23:55 Disposition: HOME SELF-CARE Discharge Problem: Palpitations Instructions: Heart Palpitations (ED) Condition: Good Pt referred to PMD for follow-up: Yes IPMP verified?: No Additional Instructions: start lopressor back at 25mg --complete holter monitor and f/u with dr mauro next week Allergies/Adverse Reactions: Allergies levofloxacin [From Levaquin] Allergy (Severe, Verified 01/13/18 22:51) rash codeine Adverse Reaction (Verified 01/13/18 22:51) SWELLING, HEART RACING, VOMITING hydrocodone bitartrate [From Lortab] Adverse Reaction (Verified 01/13/18 22:51) RASH, VOMITING ketorolac [From Toradol] Adverse Reaction (Verified 01/13/18 22:51) Rash oxycodone [From Percocet] Adverse Reaction (Verified 01/13/18 22:51) Penicillins Adverse Reaction (Verified 01/13/18 22:51) RASH, SWELLING tramadol Adverse Reaction (Verified 01/13/18 22:51) Difficulty Swallowing Home Medications: Ambulatory Orders 1 [No Reported Medications] 01/13/18 Transfer Form Completed: No Disposition Discussed With: Patient
--- NOTE | 2018-01-16 14:57 | HOLTER ---
PATIENT INFORMATION AND COMMENTS Attending Physician: 01/14/18 Indications: PALPITATIONS __ Patient Medications: NO MEDICATIONS NOTED __ Pre-procedure Summary: Protocol: Standard Heart Rate Started: 01/14/18 1243 Minimum: 47 BPM Weight: 215 LBS Ended: 01/15/18 1243 Maximum: 148 BPM Height: 64" Duration: 24 HOURS Average: 77 BPM _ INTERPRETATIONS/OBSERVATIONS: 1. BASIC RHYTHM: SINUS, RATE 47 BPM TO 130 BPM, AVERAGE 77 BPM 2. RARE TO INFREQUENT PAC'S AND PVC'S 3. NO ST-T WAVE CHANGES FROM BASELINE 4. ACTIVITY LOG--NOT MAINTAINED MTDD
== END 2018-01-14 00:45 | disposition home or self-care (01) ==
LOC: ED 22:43
DX: R00.2 Palpitations (principal); Z79.899 Other long term (current) drug therapy
CPT/HCPCS: 36415; 80053; 80306; 81001; 84439; 84443; 85025; 93005; 93010; 99283